=== PATIENT | male | born 1970 | race Two or more races ===

== ENCOUNTER 2017-04-29 06:02 | Emergency (ER) | payer SELFPAY ==
[~2017-04-29] VITALS: Ht 165.1 cm; Wt 104.3 kg
[~2017-04-29 06:02] MED LIST: NKM
[2017-04-29] MEDS ORDERED: Sodium Chloride 500ML 500 ML IV ONE (06:07)
--- NOTE | 2017-04-29 06:11 | Emergency Room Report ---
History of Present Illness General Chief Complaint: Abdominal Pain Source: Patient, EMS Present Illness HPI Patient presents with complaints of lower abdominal pain Points to her right mid and right lower aspect Pain started on Saturday Denies any diarrhea Reports increased nausea Patient also at this time reports midsternal chest discomfort Denies any shortness of breath Reports of the abdominal pain started initially and that was his main concern Denies any pleurisy denies any recent travel Denies any previous abdominal surgeries Allergies: Coded Allergies: No Known Allergies (Unverified , 04/29/17) Patient History Past Medical History: see triage record Pertinent Family History: none Reviewed Nursing Documentation: PMH: Agreed, PSxH: Agreed Nursing Documentation-PMH Past Medical History: No Stated History Review of Systems All Other Systems: negative except mentioned in HPI Physical Exam Vital Signs Date Time Temp Pulse Resp B/P (MAP) Pulse Ox O2 Delivery O2 Flow Rate FiO2 04/29/17 05:59 98.5 110 18 156/100 99 Room Air 98.4 Sp02 EP Interpretation: reviewed, normal General Appearance: mild distress - Uncomfortable Head: normocephalic, atraumatic Eyes: bilateral eye PERRL, bilateral eye EOMI, bilateral eye other - Bilateral conjunctivitis ENT: hearing grossly normal, normal pharynx, TMs + canals normal, uvula midline Neck: full range of motion, supple, no meningismus, no bony tend Respiratory: lungs clear, normal breath sounds, no rhonchi, no respiratory distress, no retraction, no accessory muscle use Cardiovascular #1: normal peripheral pulses, regular rate, rhythm, no edema, no gallop, no JVD, no murmur Gastrointestinal: normal bowel sounds, soft, no mass, no organomegaly, non- distended, no guarding, no hernia, no pulsatile mass, no rebound, tenderness - Somewhat diffusely through the abdomen difficult to localize, there was some increased discomfort in the right mid abdominal region Genitourinary: no CVA tenderness Musculoskeletal: normal inspection Neurologic: oriented x3, responsive, spinner concrete pipe III-XII nml as tested, motor strength/ tone normal, sensory intact Psychiatric: mood/affect normal Skin: normal color, no rash, warm/dry, palpation normal Lymphatic: normal inspection, no adenopathy Medical Decision Making ER Course With the history exam and presentation, multiple differentials considered, including but not limited to appendicitis, gastritis, cholecystitis, diverticulitis Last Vital Signs Date Time Temp Pulse Resp B/P (MAP) Pulse Ox O2 Delivery O2 Flow Rate FiO2 04/29/17 05:59 98.5 110 18 156/100 99 Room Air 98.4 Signed Out To: ARELI Carroll D.O. Apr 29, 2017 06:11
[2017-04-29 06:15] VITALS: BP 144/86
[2017-04-29] MEDS ORDERED: Morphine Sulfate 4mg/ml Inj IVP ONE (06:15)
[2017-04-29 06:49] LABS: HEMATOCRIT 47.2 % (42.0-52.0); HEMOGLOBIN 16.7 G/DL (14.2-18.0); MEAN CORPUSCULAR VOLUME 95 FL (80-99); PLATELET COUNT 99 K/UL (150-450); RED BLOOD COUNT 4.97 M/UL (4.70-6.10); RED CELL DISTRIBUTION WIDTH 10.8 % (11.6-14.8); WHITE BLOOD COUNT 3.9 K/UL (4.8-10.8)
[2017-04-29 06:56] LABS: APPEARANCE,URINE CLEAR; BILIRUBIN, URINE NEGATIVE (NEGATIVE); COLOR,URINE PALE YELLOW; GLUCOSE, URINE (UA) NEGATIVE (NEGATIVE); KETONES,URINE NEGATIVE (NEGATIVE); LEUKOCYTE ESTERASE ,URINE NEGATIVE (NEGATIVE); NITRITE,URINE NEGATIVE (NEGATIVE); PH,URINE 5 (4.5-8.0); PROTEIN,URINE 2+ (NEGATIVE); UROBILINOGEN,URINE NORMAL MG/DL (0.0-1.0)
[2017-04-29 07:09] LABS: ANION GAP 8 mmol/L (5-15); BLOOD UREA NITROGEN 8 mg/dL (7-18); CALCIUM 8.7 MG/DL (8.5-10.1); CARBON DIOXIDE 29 MMOL/L (21-32); CHLORIDE 104 MMOL/L (98-107); CREATININE 0.8 MG/DL (0.55-1.30); POTASSIUM 3.8 MMOL/L (3.5-5.1); SODIUM 141 MMOL/L (136-145)
[2017-04-29 07:22] LABS: ALANINE AMINOTRANSFERASE 46 U/L (12-78); ALBUMIN 3.7 G/DL (3.4-5.0); ALBUMIN/GLOBULIN RATIO 0.9 (1.0-2.7); ALKALINE PHOSPHATASE 92 U/L (46-116); ASPARTATE AMINO TRANSFERASE 77 U/L (15-37); BILIRUBIN,TOTAL 0.6 MG/DL (0.2-1.0); CKMB 13.3 NG/ML (0.0-3.6); CREATINE KINASE 1276 U/L (26-308)
[2017-04-29 07:36] VITALS: BP 124/79
[2017-04-29 08:41] VITALS: BP 148/83
--- NOTE | 2017-04-29 08:55 | Diagnostic Imaging Report ---
Indication: Abdominal pain Technique: Continuous helical transaxial imaging of the abdomen and pelvis was obtained from the lung bases to the pubic symphysis during intravenous contrast administration. Coronal 2-D reformats were also obtained. Study obtained in a Siemens sensation [address] Automatic Exposure Control was utilized. Total Dose length Product (DLP): 992.[address] Dose Index Volume (CTDIvol): 17.25 mGy Comparison: None Findings: The lung bases are essentially clear. There is a small hiatal hernia. There is moderate low attenuation of the liver consistent with fatty infiltration. 2 punctate foci of calcification in the left lobe noted nonspecific. Normal appendix noted. There is no free fluid or air. There is mild thickening of the wall of the urinary bladder. No evidence of bowel obstruction, free fluid or free air. Spleen is normal in size. There is a small exophytic left renal cyst noted projecting posterolaterally. There is no hydronephrosis. Pancreas is unremarkable. The gallbladder is mildly distended. 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 There is no spondylolisthesis. Hypertrophied facets noted. IMPRESSION: Moderate fatty liver. Small hiatal hernia Calcifications in the liver may be due to old granulomatous disease. Left renal cyst Normal appendix Mild thickening of the urinary bladder wall. Consider cystitis. Please correlate clinically. Lumbar facet arthropathy. L5 spondylolysis. Normal alignment The CT scanner at [facility] is accredited by the [employer] and the scans are performed using dose optimization techniques as appropriate to a performed exam including Automatic Exposure control.
[2017-04-29] MEDS ORDERED: KEFLEX500 MG ORAL (09:16)
[2017-04-29 09:30] VITALS: BP 148/83
--- NOTE | 2017-04-29 11:52 | Diagnostic Imaging Report ---
Indication: Dyspnea Comparison: None A single view chest radiograph was obtained. Findings: Cardiomediastinal appearance is within normal limits for age. Pulmonary vascularity is appropriate. The diaphragmatic contour is smooth and costophrenic angles are sharp. No pleural effusions are identified. The bones are unremarkable. Impression: No acute findings
--- NOTE | 2017-05-01 20:10 | Cardiology Report ---
APPROVED REPORT EKG Measurement Heart [id number] Normal sinus rhythm with sinus arrhythmia Incomplete right bundle branch block Borderline ECG
== END 2017-04-29 09:39 | disposition home or self-care (01) ==
LOC: EDBD 06:02 → EMR 06:18
DX: R10.30 Lower abdominal pain, unspecified (principal); R07.89 Other chest pain; K76.0 Fatty (change of) liver, not elsewhere classified; K44.9 Diaphragmatic hernia without obstruction or gangrene; N28.1 Cyst of kidney, acquired; M43.06 Spondylolysis, lumbar region
CPT/HCPCS: 36415; 71045; 74177; 80053; 80307; 81003; 82550; 82553; 83690; 84484; 85007; 85025; 93005; 96374; 96375; 99284; J2270; J2405; J7040; Q9967